=== PATIENT | male | born 2000 | race Caucasian/White ===

== ENCOUNTER 2022-06-15 12:54 | Emergency (ER) | payer OTHER ==
[2022-06-15 13:15] VITALS: BP 153/78; PULSE 72; RESP 18; TEMP 98.2; BMI 33.9
[2022-06-15] MEDS ORDERED: LIDOCAINE 5% TOPICAL PATCH TP ONE (14:06)
[2022-06-15] MEDS ORDERED: MAG HYDROX/AL HYDROX/SIMETH -MYLANTA- ORAL SUSPENSION PO ONE (14:07)
[2022-06-15] MEDS ORDERED: FAMOTIDINE 20 MG TABLET PO ONE (14:07)
[2022-06-15] MEDS ORDERED: ACETAMINOPHEN 325 MG TABLET (FP) ONE (14:35)
[2022-06-15] MEDS ORDERED: LIDOCAINE 5% TOPICAL PATCH ONE (14:35)
[2022-06-15] MEDS ORDERED: ACETAMINOPHEN 325 MG TABLET (FP) PO ONE (14:35)
[2022-06-15] MEDS ORDERED: IBUPROFEN 400 MG TABLET (FP) PO ONE ×2 (15:00→15:34)
[2022-06-15] MEDS ORDERED: LIDOCAINE PATCH REMOVAL MC SCH (22:00)
== END 2022-06-15 17:15 | disposition home or self-care (01) ==
LOC: JER 12:54
DX: R07.89 Other chest pain (principal); R10.12 Left upper quadrant pain
CPT/HCPCS: 0241U-QW; 71046-TC-FY; 93005; 93010; 99285-25